=== PATIENT | female | born 1985 | race Hispanic/Latino ===

== ENCOUNTER 2024-05-30 08:44 | Emergency (ER) | payer OTHER ==
[~2024-05-30] VITALS: Ht 172.7 cm; Wt 176.0 kg
[2024-05-30 09:01] VITALS: TEMP 98.8
[2024-05-30] MEDS: SODIUM CHLORIDE 0.9% 1000ML 1,000 ML IV ONE (09:37)
[2024-05-30] MEDS: ONDANSETRON HCL INJ 2MG/ML 2ML 2 MG/ML VIAL IV STA (09:37)
[2024-05-30] MEDS: KETOROLAC TROMETHAMINE 30 MG/ML VIAL IV STA (09:38)
[2024-05-30] MEDS: DIPHENHYDRAMINE HCL INJ 50 MG/ML VIAL IV ONE (09:38)
[2024-05-30] MEDS: METOCLOPRAMIDE HCL 10 MG/2ML VIAL IV ONE (09:38)
[2024-05-30 10:10] LABS: BASOPHILS % 0.4 % (0.0-1.0); EOSINOPHILS # (AUTO) 0.1 (0.0-0.4); EOSINOPHILS % 1.3 % (0.0-6.0); HEMATOCRIT 38.7 % (34.2-44.1); HEMOGLOBIN 12.9 g/dL (12.0-16.0); LYMPHOCYTES # (AUTO) 1.7 (1.0-3.2); LYMPHOCYTES % 23.4 % (18.0-39.1); MEAN CORPUSCULAR HEMOGLOBIN 29.3 pg (28-32); MEAN CORPUSCULAR HGB CONC 33.3 g/dL (31-35); MEAN CORPUSCULAR VOLUME 87.8 fL (81-99); MONOCYTES # (AUTO) 0.5 (0.2-0.8); MONOCYTES % 7.3 % (4.4-11.3); NEUTROPHILS % 66.8 % (38.7-80.0); PLATELET COUNT 245 x10e3/uL (140-360); RED BLOOD COUNT 4.41 x10e6/uL (3.6-5.1); RED CELL DISTRIBUTION WIDTH 14.4 % (11.7-14.4); WHITE BLOOD COUNT 7.44 x10e3/uL (4.8-10.8)
[2024-05-30 10:26] LABS: ALBUMIN 3.9 g/dL (3.5-5.0); ALBUMIN/GLOBULIN RATIO 1.1 (0.8-2.0); ANION GAP 13.8 mmol/L (8-16); BILIRUBIN,TOTAL 0.5 mg/dL (0.2-1.2); CALCIUM 8.9 mg/dL (8.4-10.2); CREATININE, SERUM 0.8 mg/dL (0.57-1.11); POTASSIUM 3.8 mmol/L (3.5-5.1); TOTAL PROTEIN 7.6 g/dL (6.5-8.1)
[2024-05-30 10:30] VITALS: PULSE 81; RESP 20; O2SAT 95
== END 2024-05-30 11:11 | disposition home or self-care (01) ==
LOC: ER 09:12
DX: R51.9 Headache, unspecified (principal); K21.9 Gastro-esophageal reflux disease without esophagitis
CPT/HCPCS: 36415; 70450; 80053; 84702; 85025; 99283; J1200; J1885; J2405; J2765; J7030

== ENCOUNTER 2024-06-01 11:45 | Emergency (ER) | payer OTHER ==
[~2024-06-01] VITALS: Ht 172.7 cm; Wt 173.3 kg
[2024-06-01 11:56] VITALS: TEMP 98.3
[2024-06-01] MEDS: KETOROLAC TROMETHAMINE 30 MG/ML VIAL IV STA (12:33)
[2024-06-01] MEDS: SODIUM CHLORIDE 0.9% 500ML 500 ML IV ONE (12:34)
[2024-06-01] MEDS: ACETAMIN/BUTALBITAL/CAFFEINE TAB PO ONE (12:34)
[2024-06-01] MEDS ORDERED: FIORICET 50-301 EACH PO (13:29)
[2024-06-01 13:46] VITALS: PULSE 88; RESP 18; O2SAT 98
== END 2024-06-01 13:54 | disposition home or self-care (01) ==
LOC: ER 11:50
DX: R06.02 Shortness of breath (principal); R51.9 Headache, unspecified; T46.1X5A Adverse effect of calcium-channel blockers, initial encounter; K21.9 Gastro-esophageal reflux disease without esophagitis
CPT/HCPCS: 36415; 71045; 84484; 93005; 99284; J1885; J7040